=== PATIENT | male | born 1970 | race African-American/Black ===

== ENCOUNTER 2018-06-30 11:51 | Inpatient (IN) | payer MEDICAID, MEDICARE ==
[~2018-06-30] VITALS: Ht 172.7 cm; Wt 175.1 kg
[2018-06-30] MEDS ORDERED: FUROSEMIDE 40MG/4ML VIAL IVP ONE (12:45)
[2018-06-30] MEDS ORDERED: LABETALOL HCL 20MG/4ML CARPUJECT IV ONE (12:45)
[2018-06-30 12:50] LABS: BASOPHILS % 0.5 % (0.0-2.0); EOSINOPHILS % 0.8 % (0.0-5.0); HEMATOCRIT. 48.5 % (42.0-52.0); LYMPHOCYTES % 25.3 % (20.0-50.0); MEAN CORPUSCULAR HEMOGLOBIN 24.6 pg (28.0-32.0); MEAN CORPUSCULAR VOLUME 79.7 fL (80.0-94.0); MEAN PLATELET VOLUME 8.3 fl (7.4-10.4); MONOCYTES % 12.8 % (2.0-8.0); NEUTROPHILS % 60.6 % (40.0-76.0); PLATELET 267 x1000/uL (130-400); RED BLOOD CELL COUNT 6.09 mill/uL (4.7-6.1); RED CELL DISTRIBUTION WIDTH 18.1 % (11.6-14.6)
[2018-06-30 12:57] LABS: CHLORIDE 106 mEq/L (98-107)
[2018-06-30] MEDS ORDERED: HYDRALAZINE 20MG/ML VIAL IV ONE ×2 (14:00→14:45)
[2018-06-30] MEDS ORDERED: CLONIDINE 0.1MG TABLET PO PRN ×2 (14:30→16:38)
[2018-06-30] MEDS ORDERED: NIFEDIPINE XL 60MG TAB PO SCH (14:30)
[2018-06-30] MEDS ORDERED: ONDANSETRON HCL 4MG/2ML INJ IV PRN (14:30)
[2018-06-30 14:48] LABS: CLARITY URINE CLEAR (CLEAR); COLOR URINE YELLOW (YELLOW); KETONES URINE NEGATIVE (NEGATIVE); LEUKOCYTE ESTERASE URINE NEGATIVE (NEGATIVE); NITRITE URINE NEGATIVE (NEGATIVE); OCCULT BLOOD URINE NEGATIVE (NEGATIVE); PH URINE 6.5 (4.5-8.0); PROTEIN URINE 2+ (NEGATIVE)
[2018-06-30] MEDS ORDERED: HYDRALAZINE 20MG/ML VIAL IV PRN (15:15)
[2018-06-30 15:18] LABS: *AMPHETAMINES SCREEN URINE NEGATIVE (NEGATIVE); *BARBITURATES SCREEN URINE NEGATIVE (NEGATIVE); *BENZODIAZEPINES SCREEN URINE NEGATIVE (NEGATIVE); *COCAINE SCREEN URINE NEGATIVE (NEGATIVE); CANNABINOID URINE SCREEN NEGATIVE (NEGATIVE); METHADONE URINE SCREEN NEGATIVE (NEGATIVE); OPIATES URINE SCREEN NEGATIVE (NEGATIVE); PHENCYCLIDINE URINE SCREEN NEGATIVE (NEGATIVE)
[2018-06-30] MEDS ORDERED: POTA20TA82 PO (17:37)
[2018-06-30] MEDS ORDERED: SILD20TA PO (17:44)
[2018-06-30] MEDS ORDERED: ASPI-1159 PO (17:44)
[2018-06-30] MEDS ORDERED: FURO40TA5 PO (17:44)
[2018-06-30] MEDS ORDERED: HYDR100T26 PO (17:44)
[2018-06-30] MEDS ORDERED: CLOP75TA33 PO (17:44)
[2018-06-30] MEDS ORDERED: CARV25TA47 PO ×2 (17:44)
[2018-06-30] MEDS ORDERED: ATOR-2 PO (17:44)
[2018-06-30] MEDS ORDERED: SACU1TAB4 PO (17:44)
[2018-06-30 17:46] VITALS: BP 203/115
[2018-06-30] MEDS ORDERED: ASPI-986 PO (17:46)
[2018-06-30] MEDS: FUROSEMIDE 40MG/4ML VIAL IVP SCH (18:22)
[2018-06-30] MEDS: NITROGLYCERIN OINT 1GM/INCH UDPKT TD SCH ×2 (18:23→23:44)
[2018-06-30 20:00] VITALS: BP 212/101
[2018-06-30] MEDS: ENTRESTO PO SCH (20:01)
[2018-06-30] MEDS: ENOXAPARIN 30MG/0.3ML SYR SUBCUT SCH (20:02)
[2018-06-30] MEDS: NIFEDIPINE XL 60MG TAB PO SCH (20:02)
[2018-06-30] MEDS: CARVEDILOL 25MG TABLET PO SCH (20:02)
[2018-06-30] MEDS ORDERED: CARVEDILOL 12.5MG TABLET PO SCH (21:00)
[2018-06-30] MEDS: HYDRALAZINE HCL 100MG TABLET PO SCH (22:04)
[2018-07-01] VITALS: BP 162/88
[2018-07-01 04:00] VITALS: BP 148/89
[2018-07-01] MEDS: HYDRALAZINE HCL 100MG TABLET PO SCH ×3 (06:20→20:39)
[2018-07-01] MEDS: FUROSEMIDE 40MG/4ML VIAL IVP SCH ×2 (06:20→18:07)
[2018-07-01] MEDS: NITROGLYCERIN OINT 1GM/INCH UDPKT TD SCH ×3 (06:20→18:11)
[2018-07-01 06:35] LABS: HEMATOCRIT. 48.5 % (42.0-52.0); HEMOGLOBIN. 15.1 g/dL (14.0-18.0); MEAN CORPUSCULAR HEMOGLOBIN 24.6 pg (28.0-32.0); MEAN PLATELET VOLUME 8.5 fl (7.4-10.4); PLATELET 268 x1000/uL (130-400); RED BLOOD CELL COUNT 6.14 mill/uL (4.7-6.1); RED CELL DISTRIBUTION WIDTH 18.1 % (11.6-14.6)
[2018-07-01 06:40] LABS: CHLORIDE 104 mEq/L (98-107)
[2018-07-01 06:56] LABS: CREATINE KINASE 144 IU/L (39-308)
[2018-07-01 06:58] LABS: CREATINE KINASE MB FRACTION 1.1 ng/mL (0.5-3.6)
[2018-07-01 08:00] VITALS: BP 126/68
[2018-07-01] MEDS: ENTRESTO PO SCH ×2 (08:54→20:40)
[2018-07-01] MEDS: NIFEDIPINE XL 60MG TAB PO SCH ×2 (09:02→20:40)
[2018-07-01] MEDS: CARVEDILOL 25MG TABLET PO SCH ×2 (09:03→20:39)
[2018-07-01] MEDS: ENOXAPARIN 30MG/0.3ML SYR SUBCUT SCH ×2 (09:03→20:40)
[2018-07-01 12:00] VITALS: BP 125/65
[2018-07-01] MEDS: SODIUM HYPOCHLORITE 0.125% 473ML SOLUTION TOP SCH ×2 (14:16→18:11)
[2018-07-01 14:32] LABS: PLATELET ESTIMATE NORMAL
[2018-07-01] MEDS: POTASSIUM CHLORIDE 20MEQ TABLET SR PO SCH (18:07)
[2018-07-01 19:56] VITALS: BP 120/76
[2018-07-01] MEDS: ACETAMINOPHEN 325MG TABLET PO PRN (22:49)
[2018-07-02 00:11] VITALS: BP 105/57
[2018-07-02 04:00] VITALS: BP 125/64
[2018-07-02] MEDS: FUROSEMIDE 40MG/4ML VIAL IVP SCH ×2 (05:50→17:13)
[2018-07-02] MEDS: HYDRALAZINE HCL 100MG TABLET PO SCH ×3 (05:50→20:45)
[2018-07-02] MEDS: NITROGLYCERIN OINT 1GM/INCH UDPKT TD SCH ×5 (05:50→23:51)
[2018-07-02 06:19] LABS: HEMATOCRIT. 47.7 % (42.0-52.0); HEMOGLOBIN. 14.8 g/dL (14.0-18.0); MEAN CORPUSCULAR HEMOGLOBIN 24.1 pg (28.0-32.0); MEAN PLATELET VOLUME 8.5 fl (7.4-10.4); PLATELET 286 x1000/uL (130-400); RED BLOOD CELL COUNT 6.11 mill/uL (4.7-6.1)
[2018-07-02 06:35] LABS: CHLORIDE 102 mEq/L (98-107)
[2018-07-02 08:00] VITALS: BP 126/78
[2018-07-02] MEDS: POTASSIUM CHLORIDE 20MEQ TABLET SR PO SCH ×2 (08:31→17:12)
[2018-07-02] MEDS: ENTRESTO PO SCH ×2 (08:31→20:44)
[2018-07-02] MEDS: ASPIRIN 81MG EC TABLET PO SCH (08:32)
[2018-07-02] MEDS: NIFEDIPINE XL 60MG TAB PO SCH ×2 (08:32→20:45)
[2018-07-02] MEDS: ENOXAPARIN 30MG/0.3ML SYR SUBCUT SCH (08:33)
[2018-07-02] MEDS: CARVEDILOL 25MG TABLET PO SCH ×2 (08:33→20:44)
[2018-07-02] MEDS: SODIUM HYPOCHLORITE 0.125% 473ML SOLUTION TOP SCH (08:38)
[2018-07-02] MEDS ORDERED: POTASSIUM CHLORIDE 20MEQ TABLET SR PO ONE (10:15)
[2018-07-02 12:00] VITALS: BP 98/62
[2018-07-02 12:52] LABS: PLATELET ESTIMATE NORMAL
[2018-07-02 16:00] VITALS: BP 107/65
[2018-07-02] MEDS: ACETAMINOPHEN 325MG TABLET PO PRN (17:13)
[2018-07-02 20:00] VITALS: BP 104/63
[2018-07-02] MEDS: ENOXAPARIN 40MG/0.4ML SYR SUBCUT SCH (20:44)
[2018-07-03 00:05] VITALS: BP 101/77
[2018-07-03] MEDS: ACETAMINOPHEN 325MG TABLET PO PRN (00:32)
[2018-07-03 04:00] VITALS: BP 139/86
[2018-07-03] MEDS: NITROGLYCERIN OINT 1GM/INCH UDPKT TD SCH ×2 (06:00→13:02)
[2018-07-03] MEDS: HYDRALAZINE HCL 100MG TABLET PO SCH (06:00)
[2018-07-03] MEDS: FUROSEMIDE 40MG/4ML VIAL IVP SCH (06:00)
[2018-07-03 08:05] VITALS: BP 112/76
[2018-07-03] MEDS: ENOXAPARIN 40MG/0.4ML SYR SUBCUT SCH (08:15)
[2018-07-03] MEDS: ASPIRIN 81MG EC TABLET PO SCH (08:15)
[2018-07-03] MEDS: POTASSIUM CHLORIDE 20MEQ TABLET SR PO SCH (08:15)
[2018-07-03] MEDS: CARVEDILOL 25MG TABLET PO SCH (08:16)
[2018-07-03] MEDS: NIFEDIPINE XL 60MG TAB PO SCH (08:16)
[2018-07-03] MEDS: ENTRESTO PO SCH (08:17)
[2018-07-03 09:39] LABS: BASOPHILS % 0.3 % (0.0-2.0); EOSINOPHILS % 0.8 % (0.0-5.0); HEMATOCRIT. 50.8 % (42.0-52.0); HEMOGLOBIN. 15.9 g/dL (14.0-18.0); LYMPHOCYTES % 13.7 % (20.0-50.0); MEAN CORPUSCULAR HEMOGLOBIN 24.4 pg (28.0-32.0); MEAN CORPUSCULAR VOLUME 78.1 fL (80.0-94.0); MEAN PLATELET VOLUME 8.7 fl (7.4-10.4); MONOCYTES % 14.7 % (2.0-8.0); NEUTROPHILS % 70.5 % (40.0-76.0); PLATELET 312 x1000/uL (130-400); RED CELL DISTRIBUTION WIDTH 17.7 % (11.6-14.6)
[2018-07-03 10:02] LABS: CHLORIDE 100 mEq/L (98-107)
[2018-07-03] MEDS ORDERED: NIFE60TA64 PO (11:35)
[2018-07-03] MEDS ORDERED: FURO40TA5 PO (11:35)
[2018-07-03 11:58] VITALS: BP 107/67
[2018-07-03 12:00] VITALS: BP 110/62
[2018-07-03] MEDS ORDERED: FUROSEMIDE 40MG TABLET PO SCH (21:00)
== END 2018-07-03 15:34 | disposition home or self-care (01) | DRG 264 ==
LOC: ER 12:43 → EDBEDREQ 13:57 → ENRESERV 14:35 → 7WST 17:26
PROVIDERS: ADMIT Internal Medicine; ATTEND Internal Medicine
PROC: 0JB80ZZ Excision of Abdomen Subcutaneous Tissue and Fascia, Open Approach (ICD-10-PCS; principal; 2018-07-02)
PROC: 5A09357 Assistance with Respiratory Ventilation, Less than 24 Consecutive Hours, Continuous Positive Airway Pressure (ICD-10-PCS; 2018-07-03)
DX: I11.0 Hypertensive heart disease with heart failure (principal); I16.1 Hypertensive emergency; E44.1 Mild protein-calorie malnutrition; Z68.43 Body mass index [BMI] 50.0-59.9, adult; Q25.0 Patent ductus arteriosus; N17.9 Acute kidney failure, unspecified; I50.23 Acute on chronic systolic (congestive) heart failure; I42.2 Other hypertrophic cardiomyopathy; E66.01 Morbid (severe) obesity due to excess calories; E78.00 Pure hypercholesterolemia, unspecified; E87.6 Hypokalemia; G47.33 Obstructive sleep apnea (adult) (pediatric); S31.104A Unspecified open wound of abdominal wall, left lower quadrant without penetration into peritoneal cavity, initial encounter; I25.10 Atherosclerotic heart disease of native coronary artery without angina pectoris; X58.XXXA Exposure to other specified factors, initial encounter; I25.5 Ischemic cardiomyopathy; I27.20 Pulmonary hypertension, unspecified; I50.82 Biventricular heart failure; Z91.11 Patient's noncompliance with dietary regimen; Z95.5 Presence of coronary angioplasty implant and graft; Y93.89 Activity, other specified; Y92.89 Other specified places as the place of occurrence of the external cause; Y99.8 Other external cause status
CPT/HCPCS: 36415; 71045; 80048; 80061; 80305; 82550; 82553; 83735; 83880; 84134; 84443; 84484; 85379; 93005; 93306; 93970; 94640; 96374; 96375; 99291; J0360; J1650; J1940; J3490; A4315

== ENCOUNTER 2019-07-06 07:38 | Inpatient (IN) | payer MEDICARE, OTHER ==
[~2019-07-06] VITALS: Ht 172.7 cm; Wt 178.9 kg
[~2019-07-06 07:38] MED LIST: ASPI-986 PO; ATOR-2 PO; CARV25TA47 PO; CLOP75TA33 PO; FURO40TA5 PO; HYDR100T26 PO; NIFE-32 PO; POTA20TA82 PO; SACU1TAB4 PO; SILD20TA PO
[2019-07-06] MEDS ORDERED: FUROSEMIDE 40MG/4ML VIAL IV ONE (08:30)
[2019-07-06] MEDS ORDERED: NITROGLYCERIN 0.4MG TABLET SL SL PRN (08:30)
[2019-07-06] MEDS ORDERED: ADENOSINE 3 MG/ML 2ML VIAL IV ONE ×2 (08:30)
[2019-07-06] MEDS ORDERED: ESMOLOL 2500MG PREMIX 250 ML IV ONE (08:45)
[2019-07-06] MEDS ORDERED: METOPROLOL TARTRATE 5MG/5ML VIAL IV ONE ×2 (08:48→09:00)
[2019-07-06 08:58] LABS: BASOPHILS % 0.2 % (0.0-2.0); EOSINOPHILS % 0.6 % (0.0-5.0); HEMATOCRIT. 42.8 % (42.0-52.0); HEMOGLOBIN. 13.6 g/dL (14.0-18.0); LYMPHOCYTES % 24.2 % (20.0-50.0); MEAN CORPUSCULAR HEMOGLOBIN 24.7 pg (28.0-32.0); MEAN CORPUSCULAR VOLUME 78.1 fL (80.0-94.0); MEAN PLATELET VOLUME 8.2 fl (7.4-10.4); MONOCYTES % 12.9 % (2.0-8.0); NEUTROPHILS % 62.1 % (40.0-76.0); PLATELET 309 x1000/uL (130-400); RED BLOOD CELL COUNT 5.48 mill/uL (4.7-6.1)
[2019-07-06] MEDS ORDERED: MAGNESIUM 2 G PREMIX 50 ML IV ONE (09:00)
[2019-07-06] MEDS ORDERED: CALCIUM GLUCONATE 100MG/ML 10ML VIAL IV ONE (09:00)
[2019-07-06] MEDS ORDERED: ESMOLOL 2500MG PREMIX 250 ML IV SCH (09:00)
[2019-07-06] MEDS ORDERED: METOPROLOL TARTRATE 50MG TABLET PO ONE (09:00)
[2019-07-06 09:07] LABS: INR 1.9; PARTIAL THROMBOPLASTIN TIME 28.2 sec (23.4-31.0); PROTHROMBIN TIME 19.1 sec (9.6-11.0)
[2019-07-06 09:21] LABS: CHLORIDE 102 mEq/L (98-107)
[2019-07-06] MEDS ORDERED: AMIODARONE HCL 150 MG in DEXT 5% WATER 100 ML IV ONE (09:45)
[2019-07-06] MEDS ORDERED: CLOPIDOGREL 75MG TABLET PO ONE (09:45)
[2019-07-06] MEDS ORDERED: IPRATROPIUM/ALBUTEROL 0.5-3(2.5)MG/3ML NEB HHN PRN (16:00)
[2019-07-06] MEDS ORDERED: ACETAMINOPHEN 325MG TABLET PO PRN (16:00)
[2019-07-06] MEDS ORDERED: HYDROCODONE/ACETAMINOPHEN 5/325MG TABLET PO PRN (16:00)
[2019-07-06] MEDS: FUROSEMIDE 100MG/10ML VIAL IVP SCH (17:53)
[2019-07-06] MEDS: LOSARTAN POTASSIUM 50 MG TABLET PO SCH (17:53)
[2019-07-06] MEDS: POTASSIUM CHLORIDE 20MEQ TABLET SR PO SCH (17:53)
[2019-07-06] MEDS ORDERED: ENOXAPARIN 40MG/0.4ML SYR SUBCUT NR (19:00)
[2019-07-06 22:30] VITALS: BP 159/125
[2019-07-06] MEDS: CARVEDILOL 6.25 MG TABLET PO SCH (23:37)
[2019-07-07] VITALS (9 sets, daily range): BP systolic 132–194; BP diastolic 79–113
[2019-07-07] MEDS: CLONIDINE 0.1MG TABLET PO PRN (02:51)
[2019-07-07 06:22] LABS: HEMATOCRIT. 42.2 % (42.0-52.0); HEMOGLOBIN. 13.5 g/dL (14.0-18.0); MEAN CORPUSCULAR HEMOGLOBIN 24.8 pg (28.0-32.0); MEAN CORPUSCULAR VOLUME 77.4 fL (80.0-94.0); MEAN PLATELET VOLUME 8.3 fl (7.4-10.4); PLATELET 283 x1000/uL (130-400); RED BLOOD CELL COUNT 5.45 mill/uL (4.7-6.1); RED CELL DISTRIBUTION WIDTH 18.4 % (11.6-14.6)
[2019-07-07 07:32] LABS: CHLORIDE 104 mEq/L (98-107)
[2019-07-07 07:40] LABS: LDL CHOLESTEROL 71 mg/dL (5-100)
[2019-07-07 07:41] LABS: HDL CHOLESTEROL 21 mg/dL (40-59); T4 FREE 1.15 ng/dL (0.76-1.46)
[2019-07-07] MEDS ORDERED: ASPIRIN 81MG EC TABLET PO SCH (09:00)
[2019-07-07] MEDS ORDERED: ENOXAPARIN 40MG/0.4ML SYR SUBCUT SCH (09:00)
[2019-07-07] MEDS: CLOPIDOGREL 75MG TABLET PO SCH (09:04)
[2019-07-07] MEDS: LOSARTAN POTASSIUM 50 MG TABLET PO SCH ×2 (09:05→18:17)
[2019-07-07] MEDS: FUROSEMIDE 100MG/10ML VIAL IVP SCH ×2 (09:05→18:17)
[2019-07-07] MEDS: CARVEDILOL 6.25 MG TABLET PO SCH (09:05)
[2019-07-07] MEDS: POTASSIUM CHLORIDE 20MEQ TABLET SR PO SCH ×2 (09:05→18:17)
[2019-07-07] MEDS ORDERED: DEXT 5% WATER + KCL 40MEQ/L 1,000 ML IV ONE (09:45)
[2019-07-07] MEDS ORDERED: NITROGLYCERIN 50MCG/ML 10ML VIAL (CATH LAB) IV ONE (10:50)
[2019-07-07] MEDS ORDERED: HEPARIN SODIUM 1,000 UNIT/1ML VIAL IV ONE (10:50)
[2019-07-07] MEDS ORDERED: NICARDIPINE 100MCG/ML 10ML VIAL (CATH LAB) IV ONE (10:50)
[2019-07-07] MEDS: AMLODIPINE 5MG TABLET PO SCH ×2 (11:39→21:25)
[2019-07-07] MEDS ORDERED: POTASSIUM CHLORIDE INJ 40 MEQ in DEXT 5% WATER 250 ML IV SCH (12:00)
[2019-07-07] MEDS ORDERED: DEXTROSE 50% WATER 50ML SYRINGE IV PRN (12:45)
[2019-07-07] MEDS ORDERED: DIPHENHYDRAMINE 50MG/ML VIAL IV PRN (12:45)
[2019-07-07] MEDS ORDERED: ONDANSETRON HCL 4MG/2ML INJ IV PRN (12:45)
[2019-07-07] MEDS ORDERED: LORAZEPAM 2MG/ML CPJ IV PRN (12:45)
[2019-07-07] MEDS ORDERED: LACTULOSE 20G/30ML UDC PO PRN (12:45)
[2019-07-07] MEDS ORDERED: GUAIFENESIN 200MG/10ML SUGAR FREE UDC PO PRN (12:45)
[2019-07-07 13:05] LABS: BG CARBOXYHEMOGLOBIN 1.3 % (0.5-1.5); BG DEOXYHEMOGLOBIN 19.1 % (0.0-5.0); BG FRACTION INSPIRED OXYGEN 21; BG HCO3 ACT 39.1 mmol/L (22.0-26.0); BG OXYGEN SATURATION 80.6 % (92.0-98.5); BG OXYHEMOGLOBIN 79.6 % (94.0-97.0); BG PCO2 68.1 mmHg (35.0-45.0); BG PH 7.377 (7.350-7.450); BG PO2 47.7 mmHg (75.0-100.0); BG SAMPLE SITE RIGHT RADIAL; BG TOTAL HEMOGLOBIN 14.1 g/dL (12.0-18.0); BG VENT MODE ROOM AIR
[2019-07-07] MEDS ORDERED: IOHEXOL-300 100 ML BOTTLE ONE (13:27)
[2019-07-07] MEDS ORDERED: FENTANYL CITRATE/PF 50MCG/ML 2ML VIAL ONE (13:27)
[2019-07-07] MEDS ORDERED: MIDAZOLAM HCL 2 MG/2 ML VIAL ONE (13:27)
[2019-07-07] MEDS ORDERED: IODIXANOL 320MG/ML 100 ML BOTTLE IV ONE (13:27)
[2019-07-07] MEDS ORDERED: LIDOCAINE HCL 1% 20ML VIAL (Pyxis) INJ ONE (13:27)
[2019-07-07] MEDS ORDERED: ACETAMINOPHEN 325MG TABLET PO PRN (14:30)
[2019-07-07] MEDS ORDERED: ATROPINE SULFATE 1MG/10ML SYR IV PRN (14:30)
[2019-07-07 16:13] LABS: PLATELET ESTIMATE NORMAL
[2019-07-07] MEDS: BLOOD SUGAR DIAGNOSTIC STRIP TEST SCH ×2 (18:18→21:25)
[2019-07-07] MEDS: CARVEDILOL 12.5MG TABLET PO SCH (21:25)
[2019-07-08] VITALS (12 sets, daily range): BP systolic 115–181; BP diastolic 50–122
[2019-07-08] MEDS: CLONIDINE 0.1MG TABLET PO PRN (03:06)
[2019-07-08 07:32] LABS: HEMATOCRIT. 41.1 % (42.0-52.0); HEMOGLOBIN. 12.9 g/dL (14.0-18.0); MEAN CORPUSCULAR HEMOGLOBIN 24.6 pg (28.0-32.0); MEAN CORPUSCULAR VOLUME 78.1 fL (80.0-94.0); MEAN PLATELET VOLUME 8.4 fl (7.4-10.4); PLATELET 269 x1000/uL (130-400); RED BLOOD CELL COUNT 5.26 mill/uL (4.7-6.1); RED CELL DISTRIBUTION WIDTH 18.6 % (11.6-14.6)
[2019-07-08] MEDS: CLOPIDOGREL 75MG TABLET PO SCH (08:16)
[2019-07-08] MEDS: ASPIRIN 81MG TABLET PO SCH (08:16)
[2019-07-08] MEDS: POTASSIUM CHLORIDE 20MEQ TABLET SR PO SCH ×2 (08:16→17:45)
[2019-07-08] MEDS: FUROSEMIDE 100MG/10ML VIAL IVP SCH ×2 (08:16→17:45)
[2019-07-08] MEDS: LOSARTAN POTASSIUM 50 MG TABLET PO SCH ×2 (08:16→17:46)
[2019-07-08] MEDS: AMLODIPINE 5MG TABLET PO SCH ×2 (08:17→20:34)
[2019-07-08] MEDS: CARVEDILOL 12.5MG TABLET PO SCH ×2 (08:17→20:35)
[2019-07-08] MEDS: BLOOD SUGAR DIAGNOSTIC STRIP TEST SCH ×4 (08:17→20:35)
[2019-07-08 08:41] LABS: CHLORIDE 103 mEq/L (98-107)
[2019-07-08 12:04] LABS: HEPATITIS B SURFACE ANTIGEN NEGATIVE
[2019-07-08 12:34] LABS: HEPATITIS A AB IGM NEGATIVE (NEGATIVE)
[2019-07-08 13:33] LABS: PLATELET ESTIMATE NORMAL
[2019-07-09] VITALS (10 sets, daily range): BP systolic 107–184; BP diastolic 62–105
[2019-07-09 07:17] LABS: HEMATOCRIT. 39.6 % (42.0-52.0); HEMOGLOBIN. 12.6 g/dL (14.0-18.0); MEAN CORPUSCULAR HEMOGLOBIN 24.7 pg (28.0-32.0); MEAN CORPUSCULAR VOLUME 77.5 fL (80.0-94.0); MEAN PLATELET VOLUME 8.1 fl (7.4-10.4); PLATELET 253 x1000/uL (130-400); RED BLOOD CELL COUNT 5.11 mill/uL (4.7-6.1); RED CELL DISTRIBUTION WIDTH 18.6 % (11.6-14.6)
[2019-07-09 07:21] LABS: INR 1.6; PROTHROMBIN TIME 16.2 sec (9.6-11.0)
[2019-07-09 07:59] LABS: CHLORIDE 99 mEq/L (98-107)
[2019-07-09] MEDS: FUROSEMIDE 100MG/10ML VIAL IVP SCH (08:17)
[2019-07-09] MEDS: BLOOD SUGAR DIAGNOSTIC STRIP TEST SCH ×3 (08:32→17:11)
[2019-07-09] MEDS: ASPIRIN 81MG TABLET PO SCH (08:34)
[2019-07-09] MEDS: POTASSIUM CHLORIDE 20MEQ TABLET SR PO SCH (08:34)
[2019-07-09] MEDS: CARVEDILOL 12.5MG TABLET PO SCH (08:35)
[2019-07-09] MEDS: LOSARTAN POTASSIUM 50 MG TABLET PO SCH ×2 (08:35→17:09)
[2019-07-09] MEDS: CLOPIDOGREL 75MG TABLET PO SCH (08:35)
[2019-07-09] MEDS: AMLODIPINE 5MG TABLET PO SCH (08:35)
[2019-07-09 09:46] LABS: NUCLEATED RED BLOOD CELLS 1 /100 WBC
[2019-07-09 09:47] LABS: PLATELET ESTIMATE NORMAL
[2019-07-09] MEDS ORDERED: HYDRALAZINE 20MG/ML VIAL IV NR (10:15)
[2019-07-09] MEDS ORDERED: FUROSEMIDE 40MG/4ML VIAL IVP NR (10:15)
[2019-07-09] MEDS ORDERED: POTASSIUM CHLORIDE 20MEQ TABLET SR PO NR (13:15)
[2019-07-09] MEDS ORDERED: ALBU90AE INH (14:09)
[2019-07-09] MEDS ORDERED: FUROSEMIDE 100MG/10ML VIAL IVP SCH (21:00)
[2019-07-10] MEDS ORDERED: POTASSIUM CHLORIDE 20MEQ TABLET SR PO SCH (09:00)
== END 2019-07-09 17:55 | disposition home or self-care (01) | DRG 280 ==
LOC: ER 07:38 → 5EST 10:22 → EDBEDREQTM 10:28 → EDBEDREQSVC 10:28 → EDBEDREQ 10:28 → ENRESERV 21:19 → 5EST 23:02
PROVIDERS: ADMIT Internal Medicine; ATTEND Internal Medicine
PROC: 4A023N7 Measurement of Cardiac Sampling and Pressure, Left Heart, Percutaneous Approach (ICD-10-PCS; principal; 2019-07-07)
PROC: B2111ZZ Fluoroscopy of Multiple Coronary Arteries using Low Osmolar Contrast (ICD-10-PCS; 2019-07-07)
DX: I21.4 Non-ST elevation (NSTEMI) myocardial infarction (principal); I50.43 Acute on chronic combined systolic (congestive) and diastolic (congestive) heart failure; I47.1 Supraventricular tachycardia; E66.2 Morbid (severe) obesity with alveolar hypoventilation; D68.9 Coagulation defect, unspecified; Z68.43 Body mass index [BMI] 50.0-59.9, adult; I25.5 Ischemic cardiomyopathy; E87.6 Hypokalemia; I25.10 Atherosclerotic heart disease of native coronary artery without angina pectoris; I11.0 Hypertensive heart disease with heart failure; I25.82 Chronic total occlusion of coronary artery; I45.10 Unspecified right bundle-branch block; K76.0 Fatty (change of) liver, not elsewhere classified; R74.0 Nonspecific elevation of levels of transaminase and lactic acid dehydrogenase [LDH]; E80.6 Other disorders of bilirubin metabolism; E78.5 Hyperlipidemia, unspecified; Z87.891 Personal history of nicotine dependence; I25.2 Old myocardial infarction; Z79.02 Long term (current) use of antithrombotics/antiplatelets; Z79.82 Long term (current) use of aspirin; Z79.899 Other long term (current) drug therapy; Z82.49 Family history of ischemic heart disease and other diseases of the circulatory system; Z91.19 Patient's noncompliance with other medical treatment and regimen; Z95.5 Presence of coronary angioplasty implant and graft
CPT/HCPCS: 36415; 36600; 71045; 76700; 80048; 80053; 80061; 82375; 82805; 82962; 83036; 83880; 84439; 84443; 84484; 85025; 86705; 86709; 86803; 87340; 93005; 93306; 93458; 93970; 96365; 96372; 96375; 99291; C1769; C1887; C1893; J0153; J0282; J0360; J0610; J1644; J1650; J1940; J2250; J3010; J3480; J3490; J7060; Q9967